=== PATIENT | male | born 1965 | race Caucasian/White ===

== ENCOUNTER 2016-05-11 17:08 | Emergency (ER) | payer MEDICARE, OTHER | END 2016-05-11 19:17 | disposition home or self-care (01) | LOC: FER 17:08 | DX: S46.912A Strain of unspecified muscle, fascia and tendon at shoulder and upper arm level, left arm, initial encounter (principal); M54.2 Cervicalgia; M54.9 Dorsalgia, unspecified; I10 Essential (primary) hypertension; J44.9 Chronic obstructive pulmonary disease, unspecified; M19.90 Unspecified osteoarthritis, unspecified site; Z88.5 Allergy status to narcotic agent; V43.61XA Car passenger injured in collision with sport utility vehicle in traffic accident, initial encounter | CPT/HCPCS: 72040; 73030; J1885 ==